=== PATIENT | male | born 1955 | race Caucasian/White ===

== ENCOUNTER 2018-05-04 10:02 | Day surgery (SDC) | payer OTHER ==
[~2018-05-04] VITALS: Ht 170.2 cm; Wt 66.7 kg
[~2018-05-04 10:02] MED LIST: ABAT250V; ALFALFA250 MG PO; ASPI325 PO; Adult Low Dose81 MG PO; Advil200 M1 PO; B Complex #11 EACH PO; CALMOSEPTINE O3.5 GM TP; CHLO25 PO; Excedrin Extra1 EACH PO; FLUC150A PO; Fish Oil500 M1 PO; Garlic1 EAC1 PO; HYOS.125 SL; IBUP400 PO; MELA3 PO; METO25 PO; MILK THISTLE140 MG PO; MULVITMIND PO; OLAN10 PO; ONDA4 PO; OXYC1TAB11; Silvadene20 GM TOP; TADA10TA
== END 2018-05-04 22:41 | disposition home or self-care (01) ==
LOC: ORSCMMR 10:02 → ORD 11:00 → ORSCMMR 11:00
PROVIDERS: Internal Medicine Gastroenterology
PROC: 0DBK8ZX Excision of Ascending Colon, Via Natural or Artificial Opening Endoscopic, Diagnostic (ICD-10-PCS; principal; 2018-05-04 11:00)
PROC: 0DBP8ZX Excision of Rectum, Via Natural or Artificial Opening Endoscopic, Diagnostic (ICD-10-PCS; principal; 2018-05-04 11:00)
DX: Z85.048 Personal history of other malignant neoplasm of rectum, rectosigmoid junction, and anus (principal); D12.2 Benign neoplasm of ascending colon; I89.0 Lymphedema, not elsewhere classified; Z86.010 Personal history of colon polyps; I10 Essential (primary) hypertension; F17.290 Nicotine dependence, other tobacco product, uncomplicated
CPT/HCPCS: 88305; J2250; J7030

== ENCOUNTER 2018-07-16 14:55 | Observation (INO) | payer OTHER ==
[~2018-07-16] VITALS: Ht 170.2 cm; Wt 65.8 kg
[2018-07-16] MEDS ORDERED: IBUP400 PO (15:16)
[2018-07-16] MEDS ORDERED: ACET325 PO (15:16)
[2018-07-16 16:17] LABS: BASOPHILS ABSOLUTE AUTO 0.02 K/mm3 (0.00-0.23); BASOPHILS PERCENT AUTO 0 % (0-2); EOSINOPHILS ABSOLUTE AUTO 0.04 K/mm3 (0.00-0.68); EOSINOPHILS PERCENT AUTO 0 % (0-6); Hematocrit 44.7 % (37.0-53.0); Hemoglobin 14.6 g/dL (13.5-17.5); IMMATURE GRAN PERCENT AUTO 1 % (0-1); LYMPHOCYTES ABSOLUTE AUTO 0.73 K/mm3 (0.84-5.20); LYMPHOCYTES PERCENT AUTO 5 % (21-46); MONOCYTES ABSOLUTE AUTO 1.02 K/mm3 (0.16-1.47); MONOCYTES PERCENT AUTO 7 % (4-13); Mean Corpuscular HGB 31.2 pg (26.0-34.0); Mean Corpuscular HGB Conc 32.7 g/dL (31.5-36.5); Mean Corpuscular Volume 96 fL (80-100); Mean Platelet Volume 9.5 fL (9.1-12.4); NEUTROPHILS ABSOLUTE AUTO 11.95 K/mm3 (1.96-9.15); NEUTROPHILS PERCENT AUTO 86 % (41-73); Platelet Count 211 K/mm3 (150-400); RDW Coefficient Variation 14.1 % (11.7-14.2); RDW Standard Deviation 49.7 fL (35.1-46.3); Red Blood Cell Count 4.68 M/mm3 (4.30-5.90); White Blood Cell Count 13.86 K/mm3 (4.00-11.30)
[2018-07-16 16:24] LABS: Alanine Aminotransfer (ALT/SGP 23 U/L (12-78); Albumin, Blood 3.7 g/dL (3.4-5.0); Albumin/Globulin Ratio 0.9 (0.8-1.8); Alk Phos 106 U/L (50-136); Anion Gap 5 mmol/L (6-16); Aspartate Aminotrans (AST/SGOT 14 U/L (12-37); Bilirubin, Total 0.8 mg/dL (0.1-1.0); Blood Urea Nitrogen 11 mg/dL (8-24); Bun/Creatinine Ratio 16.7 (12.0-20.0); CO2, Blood 28 mmol/L (21-32); Calcium, Blood 9.2 mg/dL (8.5-10.1); Chloride, Blood 104 mmol/L (98-108); Creatinine, Blood 0.66 mg/dL (0.60-1.20); Globulin, Blood 4.1 g/dL (2.2-4.0); Glomerular Filtration Rate >60 (60-); Glucose, Blood 113 mg/dL (70-99); Potassium, Blood 4.3 mmol/L (3.5-5.5); Sodium, Blood 137 mmol/L (136-145); Total Protein, Blood 7.8 g/dL (6.4-8.2)
[2018-07-18 04:37] LABS: BASOPHILS ABSOLUTE AUTO 0.03 K/mm3 (0.00-0.23); BASOPHILS PERCENT AUTO 1 % (0-2); EOSINOPHILS ABSOLUTE AUTO 0.16 K/mm3 (0.00-0.68); EOSINOPHILS PERCENT AUTO 3 % (0-6); Hematocrit 38.7 % (37.0-53.0); Hemoglobin 12.6 g/dL (13.5-17.5); IMMATURE GRAN ABSOLUTE AUTO 0.01 K/mm3 (0.00-0.10); IMMATURE GRAN PERCENT AUTO 0 % (0-1); LYMPHOCYTES ABSOLUTE AUTO 0.71 K/mm3 (0.84-5.20); LYMPHOCYTES PERCENT AUTO 13 % (21-46); MONOCYTES ABSOLUTE AUTO 0.46 K/mm3 (0.16-1.47); MONOCYTES PERCENT AUTO 9 % (4-13); Mean Corpuscular HGB 31.3 pg (26.0-34.0); Mean Corpuscular HGB Conc 32.6 g/dL (31.5-36.5); Mean Corpuscular Volume 96 fL (80-100); Mean Platelet Volume 9.4 fL (9.1-12.4); NEUTROPHILS ABSOLUTE AUTO 4.03 K/mm3 (1.96-9.15); NEUTROPHILS PERCENT AUTO 75 % (41-73); Platelet Count 201 K/mm3 (150-400); RDW Coefficient Variation 14.1 % (11.7-14.2); RDW Standard Deviation 49.9 fL (35.1-46.3); Red Blood Cell Count 4.02 M/mm3 (4.30-5.90)
[2018-07-19] MEDS ORDERED: CLIN300 PO (13:26)
== END 2018-07-19 14:30 | disposition home or self-care (01) ==
LOC: ER 14:55 → MEDS 14:56 → SURS 21:46
PROVIDERS: Emergency Medicine; Surgery
PROC: 0D9Q0ZZ Drainage of Anus, Open Approach (ICD-10-PCS; principal; 2018-07-16)
DX: K61.0 Anal abscess (principal); F17.290 Nicotine dependence, other tobacco product, uncomplicated; Z88.5 Allergy status to narcotic agent; Z79.899 Other long term (current) drug therapy; Z87.442 Personal history of urinary calculi; Z85.048 Personal history of other malignant neoplasm of rectum, rectosigmoid junction, and anus
CPT/HCPCS: 36415; 46050; 72193; 80053; 83605; 83690; 85025; 87070; 87075; 87205; 96365; 96366; 96367; 96375; 96376; 99285-25; G0378; J0696; J2060; J2543; J3010; J7030; Q9967

== ENCOUNTER → 2019-02-23 | Outpatient (CLI) | payer OTHER ==
[~2019-02-23] MED LIST changes: +ACET325 PO; +CLIN300 PO
[2019-02-24 00:28] LABS: Adenovirus F 40/41 Not Detected (NOT DETECT); Astrovirus Not Detected (NOT DETECT); Campylobacter Sp Not Detected (NOT DETECT); Cryptosporidium Not Detected (NOT DETECT); Cyclospora Cayetanensis Not Detected (NOT DETECT); E. Coli O157 Not Detected (NOT DETECT); Entamoeba Histolytica Not Detected (NOT DETECT); Enteroaggregative E. coli-EAEC Not Detected (NOT DETECT); Enteropathogenic E. coli-EPEC Not Detected (NOT DETECT); Enterotoxigenic E. coli-ETEC Not Detected (NOT DETECT); Giardia Lamblia Not Detected (NOT DETECT); Norovirus GI/GII Not Detected (NOT DETECT); Plesiomonas Shigelloides Not Detected (NOT DETECT); Rotavirus A Not Detected (NOT DETECT); Salmonella Sp Not Detected (NOT DETECT); Sapovirus Not Detected (NOT DETECT); Shiga Toxin-prod E. coli-STEC Not Detected (NOT DETECT); Shigella/Enteroin E. coli-EIEC Not Detected (NOT DETECT); Vibrio Cholerae Not Detected (NOT DETECT); Vibrio Sp Not Detected (NOT DETECT); Yersinia Enterocolitica Not Detected (NOT DETECT)
== END | disposition home or self-care (01) ==
LOC: LAB 18:17 → LAB SHORT 18:17
PROVIDERS: Nurse Practitioner Family
DX: K60.4 Rectal fistula (principal); R19.7 Diarrhea, unspecified; Z85.038 Personal history of other malignant neoplasm of large intestine
CPT/HCPCS: 87324; 87507

== ENCOUNTER → 2019-05-30 | Outpatient (CLI) | payer OTHER ==
[~2019-05-30] MED LIST changes: +Anti-Diarrheal2 MG PO; +Percocet 5-3251 EACH PO
== END | disposition home or self-care (01) ==
LOC: LAB SHORT 15:42 → LAB 15:42
DX: R19.7 Diarrhea, unspecified (principal)
CPT/HCPCS: 87493

== ENCOUNTER 2019-06-23 10:05 | Day surgery (SDC) | payer OTHER ==
[~2019-06-23] VITALS: Ht 170.2 cm; Wt 63.6 kg
--- NOTE | 2019-06-23 10:26 | NUR ---
06/23/19 1026 Martinez Yousif PATIENT DETERMINED TO BE ASA APPROPRIATE FOR PROPOFOL SEDATION PRIOR TO START OF PROCEDURE BY . 3-LEAD EKG REVIEWED WITH PHYSICIAN PRIOR TO START OF PROCEDURE.PATIENT CONFIRMS NPO STATUS AND AGREES WITH SCHEDULED PROCEDURE.History, Chart, Medications and Allergies reviewed before start of procedure.MONITOR INTACT WITH CONTINUOUS PULSE OXIMETRY AND INTERMITTENT BP.O2 VIA N/C INTACT THROUGHOUT SEDATION/PROCEDURE.
--- NOTE | 2019-06-23 11:08 | NUR ---
RECEIVED REPORT FROM ENDO RN (TOMER). PT AROUSING. VSS. PT ASKED FOR SPRITE.
--- NOTE | 2019-06-23 11:11 | NUR ---
PT TOLERATED DRINK, IS HUNGRY. PT STABLE DOING WELL. RIDE IS AT BEDSIDE.
--- NOTE | 2019-06-23 11:17 | NUR ---
Discharge instructions reviewed with patient. Patient verbalizes understanding. Copy given to patient to take home. PT HAS NO QUESTIONS OR CONCERNS GOING HOME. PT HAS D/C PAPERWORK. Patient States Post-Procedure ride home has been arranged. PT HAS ALL PERSONAL BELONGINGS.
--- NOTE | 2019-06-23 11:23 | NUR ---
Discharged via wheelchair to private car for ride home.
== END 2019-06-23 23:08 | disposition home or self-care (01) ==
LOC: ORSCMMR 10:05 → ORD 11:00 → ORSCMMR 11:00 → ORD 11:30 → ORSCMMR 23:08
PROVIDERS: Internal Medicine Gastroenterology
PROC: 0DBN8ZX Excision of Sigmoid Colon, Via Natural or Artificial Opening Endoscopic, Diagnostic (ICD-10-PCS; principal; 2019-06-23 11:00)
PROC: 0DBP8ZX Excision of Rectum, Via Natural or Artificial Opening Endoscopic, Diagnostic (ICD-10-PCS; principal; 2019-06-23 11:00)
PROC: 0DBH8ZX Excision of Cecum, Via Natural or Artificial Opening Endoscopic, Diagnostic (ICD-10-PCS; principal; 2019-06-23 11:00)
DX: Z12.11 Encounter for screening for malignant neoplasm of colon (principal); Z85.038 Personal history of other malignant neoplasm of large intestine; Z86.010 Personal history of colon polyps; D12.0 Benign neoplasm of cecum; K63.5 Polyp of colon; K62.1 Rectal polyp; I10 Essential (primary) hypertension; F17.210 Nicotine dependence, cigarettes, uncomplicated; Z79.899 Other long term (current) drug therapy
CPT/HCPCS: 88305; J2250; J2704; J7120